=== PATIENT | female | born 1985 | race Caucasian/White ===

== ENCOUNTER 2022-07-22 09:27 | Emergency (ER) | payer OTHER, SELFPAY ==
[2022-07-22 09:36] VITALS: BP 116/81; PULSE 83; RESP 14; TEMP 37.4; O2SAT 100
[2022-07-22] MEDS: TETANUS,DIPHTHERIA,AC PERTUSSIS ADULT (0.5 ML) BOOSTRIX IM (10:06)
--- NOTE | 2022-07-22 10:15 | ED.GENADULT ---
HPI - General Adult General Chief complaint: Skin/Abscess/Foreign Body Stated complaint: left pointer lac Time Seen by Provider: 07/22/22 09:31 Source: patient Mode of arrival: ambulatory Limitations: no limitations History of Present Illness HPI narrative: Patient presents for evaluation of laceration to left index finger. She was working at [employer] this morning when she accidentally cut her left index finger with a box car washer. She reports mild pain in the affected area. No paresthesias. No loss of range of motion. She is not diabetic. She is right-hand dominant. She smokes approximately half a pack per day. Date of last tetanus unknown. No additional complaints or concerns. Related Data Home Medications Medication Instructions Recorded Confirmed alprazolam 0.5 mg tablet 0.5 mg PO 07/22/22 escitalopram oxalate 10 mg tablet 10 mg PO DAILY 07/22/22 07/22/22 Allergies Allergy/AdvReac Type Severity Reaction Status Date / Time No Known Allergies Allergy Verified 07/22/22 09:49 Review of Systems Review of Systems: CONSTITUTIONAL: Denies fever, chills, or sweats. EYES: Denies visual changes, redness, or discharge. ENT: Denies rhinorrhea, congestion, sore throat, or otalgia. CARDIOVASCULAR: Denies chest pain, palpitations, or edema. RESPIRATORY: Denies cough or dyspnea. GASTROINTESTINAL: Denies abdominal pain, nausea, vomiting, or diarrhea. GENITOURINARY: Denies dysuria or hematuria. SKIN: Reports laceration to left index finger. MUSCULOSKELETAL: Reports pain in left index finger. Denies back pain NEUROLOGIC: Denies headache, numbness, dizziness, or weakness. PSYCHIATRIC: Denies anxiety or depression. 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 HEAD: Normocephalic, atraumatic. EYES: PERRLA and EOMI. ENT: Nares clear, no rhinorrhea or epistaxis. Mucous membranes moist. Oropharynx without tonsillar hypertrophy exudate or other lesions. Bilateral TMs pearly menon nonbulging NECK: Supple. No adenopathy or masses. No carotid bruits or JVD CHEST: Clear to auscultation. No respiratory distress. No wheezes rales or rhonchi HEART: Regular rate and rhythm. No murmur heard. Normal peripheral pulses. ABDOMEN: Soft, nontender, nondistended, normal active bowel sounds. EXTREMITIES: Normal range of motion. No edema. SKIN: Approximately 1 cm linear laceration to the dorsal aspect of the PIP joint of left hand. NEURO: No focal deficits. Alert and oriented x3. PSYCH: Normal mood and affect. Course Course Emergency Course: This is a 36-year-old female who presented for evaluation of a laceration to left index finger. Doubt retained foreign body and laceration is quite superficial so imaging not clinically indicated. She was updated on her tetanus. She tolerated laceration repair well. Advised on wound care. Follow-up in 7-10 days for suture removal. Patient in agreement with plan of care. Level of Care: Express Care Visit Vital Signs Vital signs: Vital Signs Temperature 37.4 C 07/22/22 09:36 Pulse Rate 83 07/22/22 09:36 Respirato
== END 2022-07-22 10:24 | disposition home or self-care (01) ==
PROVIDERS: Emergency Provider Nurse Practitioner; PCP Physician Assistant
DX: S61.211A Laceration without foreign body of left index finger without damage to nail, initial encounter (principal); W26.8XXA Contact with other sharp object(s), not elsewhere classified, initial encounter; Z23 Encounter for immunization; F17.210 Nicotine dependence, cigarettes, uncomplicated
CPT/HCPCS: 12001; 90471; 90715; 99212; G0463

== ENCOUNTER 2022-10-30 08:41 | Emergency (ER) | payer OTHER, SELFPAY ==
[2022-10-30 08:49] VITALS: BP 122/84; PULSE 88; RESP 16; TEMP 37.2; O2SAT 100
--- NOTE | 2022-10-30 09:28 | ED.URI ---
HPI - URI/Sore Throat General Chief Complaint: Upper Respiratory Infection Stated Complaint: sore throat Time Seen by Provider: 10/30/22 09:28 Source: patient, RN notes reviewed and old records reviewed Mode of arrival: ambulatory Limitations: no limitations History of Present Illness HPI Narrative: 37 year old female who presents to express care with complaints of sore throat, headache and feels weak and has felt hot and cold. Patient reports that she has been exposed to strep at work. Patient also reports that she pulled a tick our of her scalp last night and is concerned for tick bite. Patient has not taken any OTC medications for her complaints. Patient reports that she has increased pain with swallowing making it difficult to eat and drink. MD elicited complaint: cough and sore throat Onset (ago): day(s) (last night) Pain scale (0-10): 6 Able to tolerate fluids by mouth: Yes Treatments prior to arrival: none Related Data Allergies Allergy/AdvReac Type Severity Reaction Status Date / Time No Known Allergies Allergy Verified 10/30/22 09:01 Review of Systems Review of Systems: CONSTITUTIONAL: Reports malaise, chills, sweats, or fever. EYES: Denies visual changes, redness, or discharge. ENT: Reports rhinorrhea, congestion, sinus pain,no otalgia positive for sore throat. CARDIOVASCULAR: Denies chest pain, palpitations, or edema. RESPIRATORY: Reports cough.? Denies dyspnea. GASTROINTESTINAL: Denies abdominal pain, nausea, vomiting, diarrhea SKIN: Denies rash or itching. MUSCULOSKELETAL: Denies myalgia. NEUROLOGIC: reports headache. 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 There is no relevant family history pertinent to the presenting complaint Exam Narrative: GENERAL: Well-appearing, well-nourished, and in no acute distress. HEAD: Normocephalic EYES: PERRLA, conjunctivae clear ENT: Nares clear, turbinates edematous and erythematous, clear discharge. Mucous membranes moist. TM pearly menon with dull light reflex bilaterally; no tragal tenderness. Oropharynx erythematous without lesions. Tonsils red mildly enlarged and without exudate, no drooling, no hoarseness, no trismus, uvula midline, some post nasal drainage NECK: Supple. No lymphadenopathy CHEST: Clear to auscultation, breath sounds equal. No wheezing, rhonchi, rales, or stridor. No respiratory distress, speaks in full sentences. SAO2 100% on room air HEART: Regular rate and rhythm. No murmur heard. SKIN: Warm, dry, no rash noted NEURO: Alert and oriented x3. PSYCH: Normal mood and affect Course Course Emergency Course: Patient is aware of diagnosis, understands and agrees to treatment plan.? Anticipatory guidance given.? Patient agrees to follow-up as directed and is aware of reasons to seek care at the emergency department. Portions of this record may have been created with voice recognition software Level of Care: Express Care Visit Vital Signs
== END 2022-10-30 09:40 | disposition home or self-care (01) ==
PROVIDERS: Emergency Provider Registered Nurse; PCP Physician Assistant
DX: J02.9 Acute pharyngitis, unspecified (principal); S00.06XA Insect bite (nonvenomous) of scalp, initial encounter; W57.XXXA Bitten or stung by nonvenomous insect and other nonvenomous arthropods, initial encounter; F17.290 Nicotine dependence, other tobacco product, uncomplicated
CPT/HCPCS: 87081; 87880; 99213; G0463